=== PATIENT | female | born 1925 | race Caucasian/White ===

== ENCOUNTER 2016-09-01 21:02 | Inpatient (IN) | payer MEDICARE, OTHER ==
[~2016-09-01] VITALS: Ht 154.9 cm; Wt 54.8 kg
[~2016-09-01 21:02] MED LIST: ACETAMINOPHEN500 M1 PO; ARICEPT5 MG PO; ATIVAN0.5 MG PO; BUSPIRONE HCL7.5 MG PO; CELEXA10 MG PO; CELEXA20 MG PO; COZAAR100 MG PO; COZAAR50 MG PO; K-TAB10 MEQ PO; LASIX20 MG PO; NORVASC5 MG PO; RESTORIL7.5 MG PO; SYNTHROID25 MCG PO; ZOLOFT50 MG PO
[2016-09-01 22:15] LABS: APPEARANCE CLEAR (CLEAR); BILIRUBIN NEGATIVE (NEGATIVE); COLOR YELLOW (YELLOW); GLUCOSE NEGATIVE (NEGATIVE); KETONE NEGATIVE (NEGATIVE); LEUKOCYTE ESTERASE TRACE (NEGATIVE); NITRITE NEGATIVE (NEGATIVE); PROTEIN NEGATIVE (NEGATIVE); UROBILINOGEN NORMAL (NORMAL)
[2016-09-01 22:18] LABS: BACTERIA FEW /hpf (NONE SEEN); WHITE CELLS - URINE OCC /hpf (0-5)
[2016-09-01 22:26] LABS: UDS - AMPHET NEGATIVE QUAL (NEGATIVE); UDS - BARB NEGATIVE QUAL (NEGATIVE); UDS - BENZO NEGATIVE QUAL (NEGATIVE); UDS - COCAINE NEGATIVE QUAL (NEGATIVE); UDS - METH NEGATIVE QUAL (NEGATIVE); UDS - OPIATE NEGATIVE QUAL (NEGATIVE); UDS - PCP NEGATIVE QUAL (NEGATIVE); UDS - THC NEGATIVE QUAL (NEGATIVE)
[2016-09-01 22:40] LABS: BASOPHILS 0.2 % (0.0-2.0); EOSINOPHILS 0.6 % (0-7); HEMATOCRIT 39.9 % (36.0-48.0); IMMATURE GRANULOCYTES 0.3 % (0-5); LYMPHOCYTES 24.9 % (15-50); MCH 30.7 pg (26.0-34.0); MCHC 32.6 g/dL (31.0-37.0); MCV 94.1 fL (80.0-100.0); MEAN PLATELET VOLUME 10.2 fL (7.4-10.4); MONOCYTES 14.6 % (2-11); NEUTROPHILS 59.4 % (40-80); RBC 4.24 10x6/uL (4.00-5.40); RDW 13.2 % (11.5-14.5); WBC 6.5 10x3/uL (4.8-10.8)
[2016-09-01 22:44] LABS: PLATELET COUNT 166 10x3/uL (130-400)
[2016-09-01 22:52] LABS: ALBUMIN 3.7 g/dL (3.4-5.0); ANION GAP 13.4 mmol/L (8-16); BILIRUBIN - TOTAL 0.39 mg/dL (0.2-1.3); CALCIUM 8.7 mg/dL (8.5-10.1); CARBON DIOXIDE 27.2 mmol/L (21.0-32.0); CREATININE - SERUM 1.3 mg/dL (0.6-1.3); POTASSIUM - SERUM 3.6 mmol/L (3.5-5.1); PROTEIN - SERUM 6.9 g/dL (6.4-8.2)
[2016-09-02 00:15] VITALS: BP 143/60
--- NOTE | 2016-09-02 00:31 | NUR ---
Recieved from E.D. via wheelchair at 0015, alert and oriented to self and being in a hospital, admitted for Suicide statements at [facility], when asked why she make the statements she said 'I was pissed off' contracted for safety, physician called, family called, verbal consent guiven for admit to shelter, skintear on left hand, cellulitis on right elbow, bruises on both arms, DNR per family and [facility], will continue to monitor.
[2016-09-02] MEDS ORDERED: ZOLOFT50 MG PO (01:35)
[2016-09-02] MEDS ORDERED: ARICEPT10 MG PO (01:36)
[2016-09-02] MEDS ORDERED: TOPROL XL50 MG PO (01:36)
[2016-09-02] MEDS ORDERED: COLACE100 MG PO (01:37)
[2016-09-02] MEDS ORDERED: MELATONIN 10 M1 EACH PO (01:53)
[2016-09-02] MEDS ORDERED: SEROQUEL25 MG PO (01:54)
[2016-09-02] MEDS ORDERED: ATIVAN1 MG PO (01:56)
[2016-09-02] MEDS ORDERED: NYSTATIN1 PWD TOPICAL (01:58)
[2016-09-02 06:21] LABS: BASOPHILS 0.2 % (0.0-2.0); EOSINOPHILS 0.8 % (0-7); HEMATOCRIT 40.9 % (36.0-48.0); HEMOGLOBIN 13.2 g/dL (12-16); IMMATURE GRANULOCYTES 0.3 % (0-5); LYMPHOCYTES 35.1 % (15-50); MCH 30.3 pg (26.0-34.0); MCHC 32.3 g/dL (31.0-37.0); MEAN PLATELET VOLUME 10.4 fL (7.4-10.4); MONOCYTES 15.2 % (2-11); NEUTROPHILS 48.4 % (40-80); PLATELET COUNT 163 10x3/uL (130-400); RBC 4.35 10x6/uL (4.00-5.40); RDW 13.2 % (11.5-14.5)
[2016-09-02 06:47] LABS: HEMOGLOBIN A1C 6.3 % (4.8-6.0)
[2016-09-02 06:58] LABS: CHOL - HDL RATIO 1.6 ratio (2.3-4.1); LDL-HDL RATIO 0.6 ratio (1.5-3.5)
[2016-09-02 07:43] VITALS: BP 160/84
--- NOTE | 2016-09-02 08:56 | NUR ---
SPOKE TO PATIENTS DAUGHTER RECEIVED CODE WORD AND VERBAL CONSENT. PATIENTS DAUGHTER WOULD LIKE ASSSISTANCE TO GET HER MOM ON MEDICAID AND SHE IS UPSET THAT SHE IS HERE. SHE DOES NOT WANT HER MOTHER OVER SEDATED AND IS IN HOPES TO PLACE HER IN A MEMORY CARE UNIT.
--- NOTE | 2016-09-02 11:16 | NUR ---
B) PATIENT IS ANXIOUS, ADELIA SHIRLEY IS TALKING TO HER AND SHE IS BECOMING IRRITABLE AND MORE ANXIOUS, SHE REFUSES TO HAVE BS TAKEN AT THIS TIME. SHE IS ORIENTED TO HER NAME AND SHE DOES CONTINUE TO SAY SHE WISHES SHE WOULD , TRYING TO EXPLAIN THAT SHE IS HERE BECAUSE OF THAT AND WE NEED TO KEEP A CLOSE WATCH ON HER, DID TELL HER THAT HER DAUGHTER IS ON HER WAY. PATIENT CAN AMBULATE WITH A WALKER A SHORT DISTANCE, SHE IS UNSTEADY IN GAIT. I) PROVIDE PRESCRIBED MEDS. R) PATIENT IS COMPLIANT WITH MEDS AND DID GIVE HER AN ATIVAN 0.5 MG PO PATIENT DID ASK FOR SOMETHING TO HELP HER NERVES. SHE HAS BEEN TEARFUL AT TIMES THIS AM. P) CONTINUE PLAN OF CARE.
--- NOTE | 2016-09-02 11:30 | NUR ---
PATIENT IS IRRITABLE WITH STAFF, SHE KEEPS TELLING THEM SHE DOES NOT WANT TO HEAR WHAT THEY HAVE TO SAY. PATIENT MOVED TO ANOTHER AREA.
--- NOTE | 2016-09-02 11:40 | NUR ---
PATIENT IS CALMER, BUT SHE IS DEPRESSED.
--- NOTE | 2016-09-02 11:50 | NUR ---
PATIENT IS IN A DIFFERENT SPOT NEXT TO ANOTHER STAFF MEMBER AND SHE IS GETTING IRRITABLE WITH HIM ALSO, SHE SAYS SHE WANTS TO GO HOME AND HE HAS REDIRECTED HER LETTING HER KNOW SHE IS IN THE HOSPITAL AND SHE IS STAYING FOR A FEW DAYS, PATIENT IS NOT HAPPY WITH THAT ANSWER AND SHE IS GETTING AGITATED.
--- NOTE | 2016-09-02 12:00 | NUR ---
PATIENT TAKEN TO DINING ROOM SO SHE CAN EAT, SHE CALMED FOR AWHILE, BUT THEN SHE BECAME FOCUSED ON GOING HOME. STAFF TRYING TO REDIRECT, BUT PATIENT GETTING UPSET.
--- NOTE | 2016-09-02 12:30 | NUR ---
PATIENT SAT BY THIS NURSE AND TRYING TO EXPLAIN THAT SHE IS HERE AND THE REASON SHE IS HERE AND SHE IS ACCEPTING AT THIS TIME WHAT IS BEING SAID TO HER. EXPLAINED THAT SHE SAID SHE WANTED TO SHOOT HERSELF WITH A SHOT GUN AND STAFF HAVE TO TAKE IT SERIOUSLY. SHE SAID "I WOULD NEVER DO SUCH A THING" EXPLAINED THAT WE HAVE TO BELIEVE PEOPLE WHEN THEY SAY THAT SOME PEOPLE REALLY DO COMMIT SUICIDE. PATIENT HAS POOR SHORT TERM MEMORY, BUT AT THIS MOMENT SHE UNDERSTANDS.
--- NOTE | 2016-09-02 14:00 | NUR ---
PATIENT IS KICKING AND SCREAMING AND CURSING AT BOTH MHT'S TELLING THEM THEY ARE SORRY. THE STAFF ARE TRYING TO PREVENT HER FROM FALLING SHE IS UNSTEADY. PATIENT IS EXIT SEEKING AT THIS TIME. SHE WANTS TO GO HOME, PATIENT IS NOT REDIRECTING. SHE IS HITTING STAFF, SCREAMING AND YELLING LOUDLY.
--- NOTE | 2016-09-02 14:35 | NUR ---
PATIENT CONTINUES TO SCREAM LOUDLY. SHE IS ANXIOUS AND AGITATED. ATIVAN 1 MG IM AND HALDOL 2 MG IM GIVEN IN RIGHT HIP. SHE CONTINUES SCREAM.
--- NOTE | 2016-09-02 14:40 | NUR ---
REMOVED PATIENT TO THE HALLWAY TO ALLOW PATIENT TO SELF CALM, BECAUSE SHE IS MEDICATED HAD STAFF SIT WITH HER, BUT SHE IS CURSING AT THEM AND TRYING TO KICK AT THEM. SHE IS YELLING, ASKING FOR HELP, BUT WHEN THIS NURSE SAT DOWN TO TRY TO EXPLAIN WHAT WAS GOING ON SHE PUSHED ME AND SAID "GET OUT OF HERE" PATIENT IS CONFUSED AND UNABLE TO COMPREHEND REASON.
--- NOTE | 2016-09-02 15:25 | NUR ---
VISITORS ARE COMING AND PATIENT IS STILL SCREAMING AND YELLING, FIGHTING, SHE HAS NOT SETTLED FROM HER INJECTION. DHAVAL TOOK PATIENT DOWN TO NURSES STATION SO THAT SHE WOULD BE IN A QUIETER PLACE AND TO TRY TO SELF CALM AFTER HER MEDICATION.
[2016-09-02 16:17] VITALS: BP 160/84; Ht 154.9 cm; Wt 54.8 kg
--- NOTE | 2016-09-02 16:30 | NUR ---
PATIENT YELLING AND SCREAMING, WENT TO CHECK ON HER AND SHE GRABBED AT ME TO HELP HER, AGAIN TRIED TO EXPLAIN THAT SHE IS IN THE HOSPITAL AND THAT SHE IS NOT ABLE TO LEAVE JUST YET, BUT SHE WOULD NOT BE HERE VERY LONG. PATIENT CONTINUES TO SCREAM.
--- NOTE | 2016-09-02 17:10 | NUR ---
PATIENT BROUGHT TO DINING ROOM, SHE IS CALMER, SHE IS EATING DINNER, BUT SHE IS NOT LISTENING TO REDIRECTION, SHE DOES NOT WANT ANY ONE TELLING HER TO NOT GET UP BY HERSELF BECAUSE SHE IS UNSTEAY, HAS HAD FALLS PRIOR TO ADMIT.
[2016-09-02 19:30] VITALS: BP 140/80
--- NOTE | 2016-09-02 19:42 | NUR ---
OBTAINED URINE FOR UA AND CULTURE.
[2016-09-02 19:59] LABS: APPEARANCE CLEAR (CLEAR); COLOR STRAW (YELLOW)
[2016-09-02 20:00] LABS: BILIRUBIN NEGATIVE (NEGATIVE); GLUCOSE NEGATIVE (NEGATIVE); KETONE NEGATIVE (NEGATIVE); LEUKOCYTE ESTERASE NEGATIVE (NEGATIVE); NITRITE NEGATIVE (NEGATIVE); PROTEIN NEGATIVE (NEGATIVE); SPECIFIC GRAVITY 1.015 (1.005-1.020); UROBILINOGEN NORMAL (NORMAL)
--- NOTE | 2016-09-02 21:00 | NUR ---
RECEIVED IN DAYROOM SITTING IN RECLINER. KEEPS TRYING TO GET UP UNASSISTED. ALERT TO NAME ONLY, VERY CONFUSED. CALM AND COOPERATIVE WITH ASSESSMENT. ADMINISTER PRESCRIBED MEDICATIONS, REORIENT AND REDIRECT NEEDED. VSS. MEDICATION COMPLIANT. CONTINUE WITH CURRENT PLAN OF CARE AND MONITOR FOR SAFETY AND CHANGES.
--- NOTE | 2016-09-03 00:52 | NUR ---
SCREAMING AND KICKING STAFF. MEDICATED WITH ATIVAN 1 MG AND HALDOL 2 MG IM IN LEFT GLUTEAL.
[2016-09-03 05:13] LABS: RAPID PLASMA REAGIN Non Reactive (Non Reactive)
--- NOTE | 2016-09-03 08:14 | NUR ---
SPOKE WITH MATTHEW NEGRO, DAUGHTER AND GUARDIAN FOR PATIENT. UPDATE GIVEN ON PATIENT INVOLVING FALL LAST PM AT 1930 AND MEDICATION WHICH CURRENTLY THERE HAS NOT BEEN ANY CHANGES. REPORTED PATIENT RECEIVED A SKIN TEAR TO LEFT HAND AND HAD A BUMP ON HER HEAD AND NEURO CHECKS HAVE COME BACK NORMAL. ALSO INFORMED DAUGHTER PATIENT HAS HAD NO C/O AND PHYSICIAN WAS CONTACTED LAST NIGHT. VERBALIZED UNDERSTANDING.
[2016-09-03 08:30] VITALS: BP 149/73
--- NOTE | 2016-09-03 09:04 | NUR ---
B) PATIENT IS SLEEPING IN HALLWAY UPON ASSESSMENT. SHE IS EASILY AROUSED BY SAYING HER NAME AND TAKING V/S, COMPLIANT. SHE DID NOT REALIZE IT IS MORNING, BUT PATIENT HAS NOT SLEPT ALL NIGHT. SHE IS CONFUSED, ORIENTED TO NAME ONLY, NO SCREAMING NOTED AT THIS TIME. I) PROVIDE PRESCRIBED MEDS, REDIRECT AND REORIENT NEEDED. R) PATIENT IS CALM AT PRESENT. P) CONTINUE PLAN OF CARE.
[2016-09-03 10:19] LABS: VITAMIN D 25 HYDROXY 8.5 ng/mL (30.0-100.0)
[2016-09-03 12:19] LABS: FOLATE (FOLIC ACID) - SERUM 11.8 ng/mL (>3.0)
--- NOTE | 2016-09-03 18:13 | PN ---
PATIENT:SIMONE ALEMAN MEDICAL RECORD: [id number] LOCATION:[facility] ADMISSION DATE: 09/02/16 PROGRESS NOTE DATE OF SERVICE: 09/03/2016 SUBJECTIVE: No new complaint. OBJECTIVE: The patient was extremely agitated yesterday. She is quite attention seeking. The patient tends to yell out when she sees other people in her room. She did require both Haldol and Ativan yesterday for control of agitation. On exam, the patient this morning is somnolent. Affect very constricted. Speech minimal. Content of thought cannot be assessed. Sensorium appears unchanged. ASSESSMENT: No change in diagnosis. PLAN: 1. We will maintain current treatment plan including current medications. 2. Supportive therapy. TRANSINT:[id number] Voice Confirmation ID: [id number] DOCUMENT ID: [id number] MACY HAWLEY III, MD at 1813 CC: [id number] DICTATION DATE: 09/03/16 1136 SENIOR MARKETING ENGINEER: 09/03/16 1258 ADM IN [place] [facility] [id number] [place] [address]
[2016-09-03 19:30] VITALS: BP 163/79
--- NOTE | 2016-09-03 23:00 | NUR ---
RECEIVED IN DAYROOM SITTING IN W/C WITH STAFF. CALMER AND COOPERATIVE WITH ASSESSMENT AND CARE. SEE ASSESSMENT FLOW SHEET FOR FOR DETAILS. WILL CONTINUE CURRENT PLAN OF CARE.
[2016-09-04 10:37] VITALS: BP 125/61
--- NOTE | 2016-09-04 12:44 | NUR ---
(B)RECEIVED PATIENT SITTING IN A CHAIR AT THE NURSES STATION. ORIENTED TO SELF ONLY RELATING "AT A PLACE THAT TAKES CARE OF YOU." POOR INSIGHT INTO THE REASON FOR HOSPITALIZATION RELATING "MY DAUGHTER PUT ME HERE AND I DON'T KNOW WHY." WHEN INFORMED THE REASON SHE IS HERE PATIENT RELATED "I DON'T REMEMBER ANY OF THAT AND I WOULDN'T KNOW HOW TO USE A SHOTGUN ANYWAY." WE TALKED PATIENT RELATED "YOU KNOW I KIND OF REMEMBER SAYING SOMETHING LIKE THAT" RELATING "I WAS MAD BUT I WOULDN'T DO ANYTHING TO HURT MYSELF." SMILED AND SOCIALIZED WITH NURSE. AMBULATED WITH PHYSICAL THERAPY HOWEVER IS UNSTEADY AND REQUIRES MORE THERAPY PER PHYSICAL THERAPY. PATIENT IS LABILE AEB TALKING AND SMILING WITH STAFF BUT THEN ALL OF A SUDDEN PATIENT BECAME TEARFUL REALTING "WHY DON'T DO I HAVE TO SIT HERE THIS LONG?" PATIENT LAID HER HEAD ON THE TABLE AND WOULD NOT LOOK OR TALK WITH STAFF. (I)ADMINISTER MEDS AND MONITOR COMPLIANCE. ENCOURAGE PATIENT TO VERBALIZE FEELINGS TO STAFF. (R)MED COMPLIANT. PATIENT REMAINS LABILE AND AT TIMES WILL TALK WITH STAFF AND AT OTHERS WILL IGNORE STAFF. BLAMES DAUGHTER FOR BEING HERE REALTING SHE HAS TWO CHILDREN A SON AND A DAUGHTER AND HER DAUGHTER PUT HER HERE. (P)CONTINUE POC AND MAINTAIN FALL PRECAUTIONS.
[2016-09-04 20:00] VITALS: BP 131/72
--- NOTE | 2016-09-04 23:25 | NUR ---
B) Received patient in day room quiet, sitting with peers at change of shift. Denies being suicidal, or hopeless, maintains that she was angry and may have said something about killing herself but does not remember. States she is somewhere between [place] and [place] but cannot name this place, "I know I've been here before." Noted to have several small old scratches & scabs on both arms. Does not know where or how she got these. Dentures, upper and lower in, wears glasses but are at nursing station for daughter to diamond picker and have fixed due to being broken. Right elbow slightly reddened and swollen. Left hand skin tear healing. I) Administer medications as ordered, monitor for suicide ideation, redirect and reorient as needed, educate to fall precautions. R) Compliant with medications, denies SI/HI, unsteady gait, skin integrity improving as areas continue to heal. Oriented to person. P) Continue to monitor per plan of care.
--- NOTE | 2016-09-05 07:42 | NUR ---
B) Patient is awake, she is still sleepy, she knows her name, but not where she is located or the time. Patient can ambulate minimally with an unsteady gait. She is sitting in a w/c at this time. She slept well last night. restaurant shift leader did tell me she broke her glasses. I) Provide prescribed meds, redirect as needed and reorientate to unit milieu. R) Patient is cooperative at this time and has not shown aggression or tearfulness this am. P) Continue plan of care.
[2016-09-05 09:55] VITALS: BP 114/56
--- NOTE | 2016-09-05 17:36 | NUR ---
Patient had three visitors and her son did ask about her bruised arms, did explain that she had fallen. He verbalized understanding. Daughter came in and visited also. Patient recognized family, but she is confused.
[2016-09-05 19:30] VITALS: BP 136/70
--- NOTE | 2016-09-05 21:47 | NUR ---
RECEIVED IN DAYROOM. SETTING IN RECLINGER WITH STAFF AND PEERS AT HER SIDE. SOCIAL WITH PEERS AT TIMES. CALM AND COOPERATIVE WITH STAFF AND PEERS. ENCOURAGE TO EXPRESS NEEDS. PM MEDS GIVEN ORDERED. RESTING IN BED EYES CLOSED AT THIS TIME. CONTINUE PLAN OF CARE
--- NOTE | 2016-09-06 09:15 | NUR ---
B.) Alert and oriented to name only, has no insight to reason for hospitalization. I.) Administer medication and monitor compliance, redirect and reorient as need, monitor safety and encourage group participation. Provide one on one for patient to express feeling and educate on positive coping skills. R.) Compliant with medications, had one incident of aggresion this am, where tech tried putting patient shoes on but patient took them off and threw them and then her socks, able to redirect. No verbalized SI, contract for safety. Chair alarm in place and functioning properly. P.) Continue plan of care.
[2016-09-06 10:26] VITALS: BP 137/61
--- NOTE | 2016-09-06 14:42 | PSY ---
PATIENT NAME:SIMONE ALEMAN MEDICAL RECORD: [id number] : [birth year] LOCATION:[facility] ADMISSION DATE: 09/02/16 ACCOUNT: [id number] PSYCHIATRIC EVALUATION DATE OF EVALUATION: 09/02/16 Psychiatric Evaluation IDENTIFYING DATA: The patient is 89 years old and she is admitted to the hospital on a voluntary basis. CHIEF COMPLAINT: Suicidal thoughts. HISTORY OF PRESENT ILLNESS: The patient has a known history of dementia and she lives in an assisted living center. She was making suicidal statements to the staff there. She said that she would shoot herself with a gun. She was brought to the Emergency Room where she repeated those statements and also was aggressive and out of control and required Ativan to calm her. She endorses numerous depressive symptoms. She is clearly severely impaired cognitively. PAST MEDICAL HISTORY: Significant for hypertension and a cardiac arrhythmia. She has also had a hysterectomy and gallbladder surgery 35 years ago. ALLERGIES: CODEINE. CURRENT MEDICATIONS: Include Synthroid, Norvasc, Zoloft, Lasix, potassium, Aricept, melatonin, Seroquel and Ativan. PAST PSYCHIATRIC HISTORY: Significant for a previous hospitalization here for behavior problems associated with a dementing illness. FAMILY HISTORY: Unknown. SOCIAL HISTORY: The patient is . She has no history of drug or alcohol abuse. She has 2 adult children and she apparently functioned reasonably well from a social and occupational standpoint. MENTAL STATUS EXAMINATION: The patient is awake, alert and oriented to person, place, time and situation. Her mood is flat. Her affect is appropriate. Thought processes are disorganized with severe impairment of her memory, concentration and abstraction abilities. She denies any active intent to harm herself or others and denies overt psychotic symptoms. ASSETS: Supportive family members. LIABILITIES: Limited insight. DIAGNOSTIC IMPRESSION: AXIS I: Senile dementia of the Alzheimer's type with behavioral disturbances. Major depression, moderate severity without psychotic features. AXIS II: Deferred. AXIS III: Hypertension, chronic normal pressure hydrocephalus, hypothyroidism, osteoporosis, and constipation. AXIS IV: Moderate stressors. AXIS V: Global assessment of functioning is 35. PLAN: At this time, the patient is going to be admitted to the hospital for a comprehensive medical, psychological, and social evaluation. She will be treated with both memory enhancing and mood stabilizing medications. Her long-term prognosis is guarded. TRANSINT:[id number] Voice Confirmation ID: [id number] DOCUMENT ID: [id number] ISHAN POWELL MD at 1442 CC: [id number] DICTATION DATE: 09/02/16 1509 CIGAR HEAD PERFORATOR: 09/02/16 1526 ADM IN [facility] [address] [place] [address]
[2016-09-06 20:26] VITALS: BP 153/78
--- NOTE | 2016-09-06 21:41 | NUR ---
RECEIVED IN BEDROOM. LAYING IN BED WITH EYES CLOSED. RESPONDS TO VOICE. CALM AND COOPEATIVE WITH CARE AND ASSESSMENT. REINFORCE FALLS SAFETY. PM MEDS GIVEN ORDERED. RESTING EYES CLOSED AT THIS TIME. CONTINUE PLAN OF CARE
--- NOTE | 2016-09-07 10:11 | NUR ---
Nutrition Follow Up: Chart reviewed. Diet: Regular PO Intake: 66% (9 meal avg) +BM 09/05/16 Labs noted - Glucose WNL Meds: Lasix, Humulin, Synthroid Pt with good po intake at this time. Rec continue current diet. RD following.
[2016-09-07 10:14] VITALS: BP 104/65
--- NOTE | 2016-09-07 12:57 | NUR ---
(B)RECEIVED PATIENT SITTING IN A CHAIR AT THE NURSES STATION. ORIENTED TO SELF ONLY. POOR INSIGHT INTO THE REASON FOR HOSPITALIZATION RELATING "I FELL OR SOMETHING. I REALLY DON'T KNOW." EMOTIONAL TODAY. PATIENT WILL START CRYING FOR NO APPARENT REASON. LABILE AEB WILL INTERACT WITH OTHERS APPROPRIATELY HOWEVER WILL ALSO ARGUE AND TELL OTHERS TO SHUT UP AND/OR GET OUT. TRIES TO TELL PEERS WHAT TO DO. (I)ADMINISTER MEDS AND MONITOR COMPLIANCE. REDIRECT FOR INAPPROPRIATE OUTBURSTS. (R)MED COMPLIANT. REDIRECTS HOWEVER IS NOTED ARGUING WITH A FEMALE PEER AND HAD TO BE MOVED TO ANOTHER TABLE. DID APOLOGIZE TO STAFF LATER. REMAINS LABILE. (P)CONTINUE POC AND MAINTAIN FALL PRECAUTONS.
--- NOTE | 2016-09-07 13:54 | PN ---
PATIENT:SIMONE ALEMAN MEDICAL RECORD: [id number] LOCATION:[facility] ADMISSION DATE: 09/02/16 PROGRESS NOTE DATE OF SERVICE: 09/06/2016 SUBJECTIVE: The patient's case was discussed with staff. She has no new complaint. OBJECTIVE: The patient denies intent to harm herself or others. She is quite impaired cognitively, but is also having significant problems with some paranoid thoughts. ASSESSMENT: No change in diagnoses. PLAN: Current medicines have been reviewed and will be maintained. Her long-term prognosis is guarded. TRANSINT:[id number] Voice Confirmation ID: [id number] DOCUMENT ID: [id number] ISHAN POWELL MD at 1354 CC: [id number] DICTATION DATE: 09/06/16 1448 REGIONAL PROPERTY MANAGER: 09/06/16 191 ADM IN [facility] [address] [place] [address]
--- NOTE | 2016-09-07 15:52 | NUR ---
Patient daughter Iris Nuno here visiting, reviewed medication record with specific information regarding klonopin and Risperdal. States she does not feel like her mother will be able to go back to [facility] living, is considering possible shelter, very upset about this and is tearful, directed to clinical social work therapist Kaelyn for discussion.
[2016-09-07 19:40] VITALS: BP 126/65
--- NOTE | 2016-09-07 20:49 | NUR ---
RECEIVED IN DAYROOM. SETTING IN RECLINER. DEMANDING AT TIMES. COOPERATIVE WITH ASSESSMENT AND CARE. REFUSED PM MEDS AT INITIAL ATTEMPT. REDIERCT AND REORIENT ENCOURAGE TO TAKE PM MEDS AND PM MEDS GIVEN ORDERED. RESTING IN RECLINER AT THIS TIME. CONTINUE PLAN OF CARE.
[2016-09-08 08:03] VITALS: BP 123/68
--- NOTE | 2016-09-08 13:16 | NUR ---
PATIENT ATTEMPTING TO STAND UNASSISTED AND WHEN STAFF TRIES TO HELP HER TO A RECLINER OR BACK TO HER CHAIR PATIENT BECOMES RESTLESS AND AGGRESSIVE AEB BY KICKING, HITTING AND TRYING TO BITE STAFF. CURSING AND CALLING MHT A BASTARD. RELATING "GO AHEAD AND KILL ME. I WANT TO . GOD WILL GET YOU." BANDAIDS PLACED TO SKIN TEARSON LEFT HAND AND PATIENT PULLED THEM OFF RELATING "I WANT TO BLEED TO . GO AHEAD AND CUT MY ARMS OFF. CUT MY LEGS OFF I DON'T GIVE A DAMN. I'LL HELP YOU GET STARTED I'LL PULL MY SHOES OFF FOR YOU." RELATING TO UNSEEN OTHERS. PRN HALDOL ADMINISTERED PER ORDERS WITHOUT DIFFICULTY.
--- NOTE | 2016-09-08 17:02 | PN ---
PATIENT:SIMONE ALEMAN MEDICAL RECORD: [id number] LOCATION:[facility] ADMISSION DATE: 09/02/16 PROGRESS NOTE DATE OF SERVICE: 09/07/2016 SUBJECTIVE: The patient's case was discussed with staff. She has no new complaint. OBJECTIVE: The patient is in good behavioral control with limited insight about her condition. She tolerates her medicines well. ASSESSMENT: No change in diagnoses. PLAN: Current medicines and therapies have been reviewed. The patient was aggressive with another resident today. She will be monitored for clinical changes. Her long-term prognosis is guarded. TRANSINT:[id number] Voice Confirmation ID: [id number] DOCUMENT ID: [id number] ISHAN POWELL MD at 1702 CC: [id number] DICTATION DATE: 09/07/16 1404 SCREW DOWN: 09/07/16 1414 ADM IN [place] [id number] [place] [address]
[2016-09-08 19:53] VITALS: BP 154/77
--- NOTE | 2016-09-08 20:38 | NUR ---
(B)RECEIVED PATIENT SITTING IN A CHAIR AT THE NURSES STATION. ORIENTED TO SELF ONLY. ATTEMPTING TO INTERACT WITH ANOTHER PEER WHEN THE PEER STARTED TO HIT AT HER. PATIENT IS LABILE AEB WILL TALK AND INTERACT APPROPRIATELY HOWEVER WILL BECOME AGITATED AND WILL CURSE STAFF, ATTEMPT TO BITE, HIT AND KICK THEM AND ALSO TRIED THROWING HER SHOES AT ANOTHER PEER. ALSO MAKING COMMENTS THAT SHE SHOULD WANTED TO . ANGRY AND OBSSESSED WITH THE IDEA HER DAUGHTER "DID THIS TO ME" REFERRING TO HER HOSPITALIZATION. (I)ADMINISTER MEDS AND MONITOR COMPLIANCE. REDIRECT FOR INAPPROPRIATE BEHAVIOR AND DELUSIONAL THOUGHTS. (R)MED COMPLIANT. POOR REDIRECTION FOR BEHAVIOR AND DELUSIONS. PATIENT BECOMES MORE ANGRY AND ABILITY TO SEPARATE FANTASY FROM REALITY IS IMPAIRED. (P)CONTINUE POC AND MAINTAIN FALL PRECAUTIONS.
--- NOTE | 2016-09-09 04:58 | NUR ---
B) RECIEVED SITTING IN THE DAY ROOM, ALERT AND ORIENTED TO SELF, QUIET AND KEEPING TO HERSELF, SOCIAL WITH STAFF, I) ADMINISTERED PERSCRIBED MEDICATIONS, ORIENTED NEEDED, R) MEDICATION COMPLIANT, STATED SHE WAS NOT BETO WHY SHE WAS HERE, P) CONTINUE PLAN OF CARE, CONTINUE TO MONITOR.
[2016-09-09 08:08] VITALS: BP 157/73
--- NOTE | 2016-09-09 11:18 | NUR ---
B) Patient is awake and alert this am, she is oriented to self. She is particiapating in groups and she did ambulate with P.T. I) Provide prescribed meds and encourage to participate in groups and activities. R) Patient is compliant with meds and unit milieu. P) Continue plan of care.
--- NOTE | 2016-09-09 14:27 | PN ---
PATIENT:SIMONE ALEMAN MEDICAL RECORD: [id number] LOCATION:[facility]ddieYAHAIRAOctavio FoyMargie ADMISSION DATE: 09/02/16 PROGRESS NOTE DATE OF SERVICE: 09/08/2016 SUBJECTIVE: The patient's case was discussed with staff. She has no new complaint. OBJECTIVE: The patient is confused, but has not been aggressive. She is still not eating very well, but she is sleeping better. ASSESSMENT: No change in diagnoses. PLAN: Supportive and educational interventions were made. technician terminal and repeater prognosis is guarded. TRANSINT:[id number] Voice Confirmation ID: [id number] DOCUMENT ID: [id number] ISHAN POWELL MD at 1427 CC: [id number] DICTATION DATE: 09/08/16 171 SWATCH FOLDER: 09/08/16 1743 ADM IN [place] [id number] [place] [address]
[2016-09-09 19:30] VITALS: BP 153/71
--- NOTE | 2016-09-09 20:15 | NUR ---
RECIEVED IN DAYROOM. SETTING IN WHEELCHAIR WITH PEERS BY HER SIDE. STATES"I HAD A GOOD DAY". CALM AND COOPERATIVE WITH CARE AND ASSESSMENT. ENCOURAGE TO ASK FOR ASSIST. CONTINUES TO SET QUIETLY IN WHEELCHAIR. CONTINUE PLAN OF CARE
--- NOTE | 2016-09-10 08:00 | NUR ---
B) Patient is calm and pleasant today, she has not shown any aggression or hallucinations today. She is confused, she knows her name, but not place or time. Asked her where she is located and she says "Well, I'm at the place to eat" Explained that she is in the hopsital in [place], [place] and that yes, she will get to eat here. Explained to her the reason she is in the hospital and asked her if she recalled any of the behaviors mentioned. Patient said she did not. I) Provide prescribed meds and redirect to unit milieu. R) Patient does ambulate, but needs assist, watch carefully as she stands alone, alarm on, but she is quick. P) Continue plan of care.
[2016-09-10 08:08] VITALS: BP 125/57
--- NOTE | 2016-09-10 15:12 | NUR ---
LATE ENTRY FROM 09/09. PT'S DTR-INDU RENDON WAS PLEASED WITH SERVICES RECIEVED AND REFERRAL TO [facility]. PT'S SON AND DIL ALSO VISITED AND STATED THAT [facility] WAS NOT AN APPROPRIATE PLACEMENT FOR PT ANYMORE DUE TO SEVERE DECLINE IN COGNITION.
[2016-09-10 20:00] VITALS: BP 136/74
--- NOTE | 2016-09-11 01:30 | NUR ---
B) Recieved sitting a chair in the day room, alert and oriented to self and being in a hospital, calm and cooperative, confused as to why she was here, I) Administered perscribed medications, redirected and oriented as needed, R) Medication compliant, pleasant and social with staff, P) Continue plan of care, continue to monitor.
[2016-09-11 10:39] VITALS: BP 146/76
--- NOTE | 2016-09-11 12:24 | NUR ---
B) Patient is awake and alert, she is oriented to her self only. She does not know where she is and she does not know why she is here. She is confused, but has good longer term memory recall. She did ambulate with P.T., but did not do well. I) Provide prescribed meds. R) Patient is compliant with medications. P) Continue plan of care.
--- NOTE | 2016-09-11 13:38 | NUR ---
Patient is very irritable she wants to go to bed abd she wants to toilet, I personally just took her 10 minutes prior. She is angry with her children stating she will skin them for putting her here, tried to explain to her that it isn't their fault. She is getting angry. Haldol 2 mg IM given.
--- NOTE | 2016-09-11 14:15 | NUR ---
Patient is calmer and she is talking nicely with staff now, redirected to magazines and newspaper and patient is reading well.
--- NOTE | 2016-09-11 16:22 | NUR ---
Son and daughter in law here visiting and they are discussing that she will be moved to another place and that Iris is looking for a place for her to live. She is listening, not sure if she is comprehending what is being relayed to her, but she is being educated.
[2016-09-11 19:36] VITALS: BP 115/54
--- NOTE | 2016-09-12 00:19 | NUR ---
B) Recieved sitting in the day room, alert and oriented to self, confused and does not know why she is here, I) Administered perscribed medications crushed in vinilla pudding, redirected and oriented as needed, R) Medication compliant, calm and cooperative with staff, P) Continue plan of care, continue to monitor.
[2016-09-12 09:59] VITALS: BP 132/63
--- NOTE | 2016-09-12 12:48 | NUR ---
(B)RECEIVED PATIENT SITTING IN A CHAIR AT THE NURSES STATION. ORIENTED TO SELF AND AUGUST HOWEVER THOUGHT THE YEAR TO BE 1918. RELATES REASON FOR HOSPITALIZATION "TO GET HELP FOR WHAT I'VE GOT WRONG. IT STARTS WITH MY KNEES." POOR INSIGHT INTO THE REASON FOR HOSPITALIZATION RELATING "PLACE TO GET HELP." MORE COOPERATIVE TODAY AND NOT ACCUSING DAUGHTER OF PUTTING HER HERE. PLEASANT WHEN APPROACHED HOWEVER SITS AND WATCHES OTHERS BUT MAKES NEEDS KNOWN TO STAFF. (I)ADMINISTER MEDS AND MONITOR COMPLIANCE. REORIENT NEEDED. (R)MED COMPLIANT. POOR REORIENTATION DUE TO IMPAIRED ABILTIY TO RETAIN INFORMATION. COOPERATIVE AND PLEASANT. (P)CONTINUE POC AND MAINTIAN FALL PRECAUTIONS.
[2016-09-12 20:00] VITALS: BP 154/78
--- NOTE | 2016-09-13 00:14 | NUR ---
B) Recieved sitting in the day room, alert and oriented to self, impatient and demanding, wanting to get up unassisted, argumenative with staff, I) Administered perscribed medications, redirected several times, oriented to unit rules, R) Medication compliant, placed in hallway in rock chair to closely monitor, P) Continue plan of care, continue to monitor for falls.
[2016-09-13 10:25] VITALS: BP 128/70
--- NOTE | 2016-09-13 13:51 | PN ---
PATIENT:SIMONE ALEMAN MEDICAL RECORD: [id number] LOCATION:EddieYAHAIRAOctavio FoyMargie ADMISSION DATE: 09/02/16 PROGRESS NOTE DATE OF SERVICE: 09/10/2016 SUBJECTIVE: The patient's case was discussed with staff. She has no new complaint. OBJECTIVE: The patient is in good behavioral control with limited insight about her condition. She has some mood lability, but has not been aggressive. ASSESSMENT: No change in diagnoses. PLAN: The patient will be maintained on current medicines, which I have reviewed. I am going to increase the dose of Risperdal slightly. Her long-term prognosis is guarded. TRANSINT:[id number] Voice Confirmation ID: [id number] DOCUMENT ID: [id number] ISHAN POWELL MD at 1351 CC: [id number] DICTATION DATE: 09/10/16 1415 LOTTERY SALES CLERK: 09/10/16 1801 ADM IN [place] [id number] [place] [id number]
--- NOTE | 2016-09-13 13:52 | PN ---
PATIENT:SIMONE ALEMAN MEDICAL RECORD: [id number] LOCATION:EddieDouglasREYMUNDO Foy112 ADMISSION DATE: 09/02/16 PROGRESS NOTE DATE OF SERVICE: 09/09/2016 SUBJECTIVE: The patient's case was discussed with staff. She has no new complaint. OBJECTIVE: The patient is in good behavioral control with limited insight about her condition. She tolerates her medicines well. ASSESSMENT: No change in diagnoses. PLAN: Current medicines and therapies have been reviewed and will be maintained. Long-term prognosis is guarded. I anticipate the patient could be transitioned out of the hospital soon if this level of improvement is maintained. TRANSINT:[id number] Voice Confirmation ID: [id number] DOCUMENT ID: [id number] ISHAN POWELL MD at 1352 CC: [id number] DICTATION DATE: 09/09/16 1447 SOLE LEVELER MACHINE: 09/09/16 1504 ADM IN [place] [id number] [place] [address]
--- NOTE | 2016-09-13 17:50 | NUR ---
B.) Recieved patient this am, sitting in rock chair, yelling out and being argumentive with staff. Redirected patient for inappropriate behavior, refocused to reality versus nonreality. Cooperative with ADL and assessment. Alert to name only, has no insight to why she is here. I.) Administer medications and monitor compliance. Redirect and reorient as need. Monitor safety and signs or verbalized SI. R.) Compliant with medications, reorientation is brief, patient is focused on delusion that her daughter does not want her to walk, no SI, chair alarm on and functioning properly. P.) Continue plan of care.
[2016-09-13 19:39] VITALS: BP 136/68
--- NOTE | 2016-09-13 20:49 | NUR ---
RECEIVED IN DAYROOM. SETTING IN CHAIR WITH STAFF AND PEERS AT HER SIDE. SOCIAL AT TIMES.CALM AND COOPERATIVE WITH CARE AND ASSESSMENT. ENCOURAGE TO EXPRESS NEEDS. PM MEDS GIVEN ORDERED. RESTING IN BNED EYES OPEN AT THIS TIME. CONTINUE PLAN OF CARE
--- NOTE | 2016-09-13 22:10 | NUR ---
ATTEMPTS TO GET OUT OF BED WITHOUT ASSIST. REINFORCED FALLS SAFETY. MOVE TO HALLWAY IN RECLINER FOR ONE ON ONE CARE FOR SAFETY.
--- NOTE | 2016-09-14 10:04 | NUR ---
Nutrition Follow Up: Chart reviewed. Diet: Regular PO Intake: 60% (8 meal avg) Wt stable Labs noted - Glucose remains WNL Meds: Lasix Pt with fair po intake at this time. Will send Ensure BID. RD following.
[2016-09-14 14:08] VITALS: BP 162/77
--- NOTE | 2016-09-14 15:58 | NUR ---
B.) Alert and oriented to name and place today, no insight to why she is here, explained she was here because of SI, patient respond with "No, no way." and laughs. I.) Administer prescribed medications and monitor compliance, assess for any suicidal ideations. Monitor safety, encourage group participation and verbalization of feelings. R.) Compliant with medications. No suicidal ideations, contract for safety. Has been calm and cooperative, with no attempts to get up unassistted. P.) Continue plan of care.
[2016-09-14 20:35] VITALS: BP 133/66
--- NOTE | 2016-09-14 23:12 | NUR ---
RECEIVED IN DAYROOM. SETTING IN RECLINER WITH PEEERS AT HER SIDE. CALM AND COOPERATIVE WITH CARE AND ASSESSMENT. REINFORCE FALLS SAFETY. PM MEDS GIVEN ORDERED. RESTING EYES CLOSED IN BED AT THIS TIME. CONTINUE PLAN OF CARE
[2016-09-15 08:00] VITALS: BP 136/52
--- NOTE | 2016-09-15 12:09 | PN ---
PATIENT:SIMONE ALEMAN MEDICAL RECORD: [id number] LOCATION:DUNCAN Foy112 ADMISSION DATE: 09/02/16 PROGRESS NOTE DATE OF SERVICE: 09/14/2016 SUBJECTIVE: The patient's case was discussed with staff. She has no new complaint. OBJECTIVE: The patient is in good behavioral control with limited insight about her condition. She is much more appropriate and pleasant. She is still severely impaired cognitively. ASSESSMENT: No change in diagnoses. PLAN: If this level of improvement is maintained, I would anticipate she can be transitioned out of the hospital soon. TRANSINT:[id number] Voice Confirmation ID: [id number] DOCUMENT ID: [id number] ISHAN POWELL MD at 1209 CC: [id number] DICTATION DATE: 09/14/16 1447 PRICING DIRECTOR: 09/14/16 1500 ADM IN [place] [id number] [place] [id number]
--- NOTE | 2016-09-15 12:10 | PN ---
PATIENT:SIMONE ALEMAN MEDICAL RECORD: [id number] LOCATION:EddieYAHAIRAOctavio FoyMargie ADMISSION DATE: 09/02/16 PROGRESS NOTE DATE OF SERVICE: 09/13/2016 SUBJECTIVE: The patient's case was discussed with staff. She has no new complaint. OBJECTIVE: The patient is in good behavioral control, but she has been argumentative at other times and is very demanding overall. She is not eating adequately and she is not taking her medicines. ASSESSMENT: No change in diagnoses. PLAN: The patient denies that she is not taking her medicines, saying that that is not true, but nursing staff indicates that it is true. When asked if the patient has any problems or complaints about the medicines, she says not and that she is taking them, which again is not the case. It is difficult to adjust medications to address these symptoms when she is not taking them and this places me at a significant disadvantage in trying to handle her situation. TRANSINT:[id number] Voice Confirmation ID: [id number] DOCUMENT ID: [id number] ISHAN POWELL MD at 1210 CC: [id number] DICTATION DATE: 09/13/16 1419 AUTOCAD DETAILER: 09/13/16 1501 ADM IN [place] [id number] [place] [address]
--- NOTE | 2016-09-15 13:44 | NUR ---
P.) Alert and oriented to name and place today, pleasant smiling and cooperative with care. I.) Administer medications and monitor compliance, monitor for any suicidal ideations and monitor safety. Encourage group participation. R.) Compliant with medications, no suicidal ideations. Patient is smiling more today, socializing and walking with walker, motivated to move around today and wants to walk often with walker with assist per staff. P.) Continue plan of care.
[2016-09-15 20:22] VITALS: BP 136/67
--- NOTE | 2016-09-15 21:40 | NUR ---
RECEIVED AT NURSES DESK SITTING IN W/C. CALM AND COOPERATIVE WITH CARE. COMPLIANT WITH PM MEDS. ASSESSMENT COMPLETED PER FLOW SHEET. CONTINUE POC AND MONITOR FOR SAFETY.
[2016-09-16 08:10] VITALS: BP 141/65
--- NOTE | 2016-09-16 14:02 | PN ---
PATIENT:SIMONE ALEMAN MEDICAL RECORD: [id number] LOCATION:DUNCAN Foy112 ADMISSION DATE: 09/02/16 PROGRESS NOTE DATE OF SERVICE: 09/15/2016 SUBJECTIVE: The patient's case was discussed with staff. She has no new complaint. OBJECTIVE: The patient has had some recent delusional thoughts. She is being treated with antipsychotic medication that has significantly helped her thought disorganization and delusional thinking. DIAGNOSES: Psychosis, not otherwise specified. PLAN: The patient will be maintained on current medicines. Her long-term prognosis is guarded. I anticipate she will be transitioned out of the hospital soon if this level of improvement is maintained. TRANSINT:[id number] Voice Confirmation ID: [id number] DOCUMENT ID: [id number] ISHAN POWELL MD at 1402 CC: [id number] DICTATION DATE: 09/15/16 1544 SUPERVISOR FINISHING DEPARTMENT: 09/15/162013 ADM IN [facility] [address] [place] [address]
[2016-09-16 19:30] VITALS: BP 171/67
--- NOTE | 2016-09-17 00:34 | NUR ---
B) recieved sitting in the day room, alert and oriented to self, calm and keeping to herself, I) Administered perscribed medications, redirected as needed, R) Medication compliant, cooperative with staff, P) Continue plan of care, continue to monitor.
[2016-09-17 08:11] VITALS: BP 140/80
--- NOTE | 2016-09-17 12:28 | NUR ---
(B)RECEIVED PATIENT SITTING IN A CHAIR AT THE NURSES STATION. ORIENTED TO SELF ONLY AEB BEING IN A "PLACE THAT HELPS ME GET BETTER AND BETTER." PATIENT RELATES "WHY CAN'T I REMEMBER THAT" WHEN TOLD SHE IS AT [facility]. CALM AND COOPERATIVE AND EXPRESSES DISBELIEF WHEN TOLD THE REASON SHE WAS HOSPITALIZED. SMILES AND INTERACTS WITH STAFF AND PEERS. (I)ADMINISTER MEDS AND MONITOR COMPLIANCE. REORIENT NEEDED. (R)MED COMPLIANT. POOR REORIENTATION DUE TO IMPAIRED ABILITY TO RETAIN INFORMATION. (P)CONTINUE POC AND MAINTAIN FALL PRECAUTIONS.
--- NOTE | 2016-09-17 14:25 | NUR ---
LATE ENTRY FROM 09/16. PT'S DTR, INDU, VISITED THE UNIT. SW DISCUSSED DISCHARGE PLANNING AND PT'S PROGRESS FROM TREATMENT.
--- NOTE | 2016-09-17 15:23 | NUR ---
PT RESTLESS AND ANXIOUS. REQUESTED SOMETHING FOR HER NERVES. HALDOL 2MG PO ADMINISTERED PER ORDERS.
[2016-09-17 19:30] VITALS: BP 149/48
--- NOTE | 2016-09-17 20:49 | NUR ---
B) Patient is awake and alert and she is calm and pleasant tonight, she has not shown any aggression. She can ambulate with a walker. She is confused, oriented to self only. I) Provide prescribed meds. R) Patient is compliant with meds and unit milieu. P) Continue plan of care
[2016-09-18 09:46] VITALS: BP 142/66
--- NOTE | 2016-09-18 13:52 | NUR ---
PATIENT WAS BECOMING AGITATED AEB ARGUING WITH STAFF. REALTING SHE WAS GOING TO LEAVE HERE. SHE DOES NOT HAVE TO STAY HERE. HALDOL 2MG PO ADMINISTERED PER ORDERS.
--- NOTE | 2016-09-18 16:07 | NUR ---
(B)RECEIVED PATIENT SITTING IN A CHAIR AT THE NURSE'S STATION. ORIENTED TO SELF ONLY. RELATES "I WISH I COULD WALK" INSTRUCTED PATIENT SHE CAN WALK WITH THE WALKER. ORIENTED TO SELF ONLY RELATING SHE IS "IN THE PLACE WHERE THEY TAKE CARE OF YOU." RELATES REASON FOR HOSPITALIZATION "I FELL AND HURT MYSELF. HURT MY BRAIN." LABILE AEB WILL BE APPROPRIATE IN INTERACTION HOWEVER WILL THEN BECOME ARGUMENTATIVE AND NOT FOLLOW REDIRECTION. (I)ADMINISTER MEDS AND MONITOR COMPLIANCE. REORIENT NEEDED. (R)MED COMPLIANT. POOR REORIENTATION DUE TO IMPAIRED ABILITY TO RETAIN INFORMATION. (P)CONTINUE POC AND MAINTAIN FALL PRECAUTIONS.
--- NOTE | 2016-09-18 18:39 | PN ---
PATIENT:SIMONE ALEMAN MEDICAL RECORD: [id number] LOCATION:DUNCAN Venegas ADMISSION DATE: 09/02/16 PROGRESS NOTE DATE OF SERVICE: 09/17/2016 SUBJECTIVE: No new complaint. OBJECTIVE: The patient is doing well. She is tolerating the current dose of Risperdal 0.5 mg twice a day with excellent results. She is showing no side effects to the medication whatsoever. On exam, mood is euthymic, affect is pleasant, but somewhat constricted. Speech is low in volume and somewhat terse, but no other language disorder noted. Content of thought is negative for overt psychosis. Sensorium is unchanged. ASSESSMENT: No change in diagnosis. PLAN: 1. Maintain all current medications. 2. Continue supportive therapy. TRANSINT:[id number] Voice Confirmation ID: [id number] DOCUMENT ID: [id number] MACY HAWLEY III, MD at 1839 CC: [id number] DICTATION DATE: 09/17/16 1224 HUMAN RESOURCES RECRUITER: 09/17/162054 ADM IN [place] [id number] [place] [address]
[2016-09-18 20:00] VITALS: BP 156/69
--- NOTE | 2016-09-18 21:55 | NUR ---
B) Quiet, sitting off to edge of room alone, away from peers. No interaction noted with others. Dressings intact over left hand skin tears and right elbow abscess. Uses her walker when ambulating. No suicidal statements made. Refused to have a shower despite offer of assistance by staff. I) Administer medications as ordered, redirect and reorient PRN. R) Compliant with medications given crushed in applesauce. Oriented to person only, unable to state where she is, what caused her to be here and date. No acting out behavior. P) Continue to monitor per plan of care.
--- NOTE | 2016-09-19 05:35 | NUR ---
Agitated, wanted to get out of bed. Assisted up in wheelchair and rolled chair out to nursing station. Sitting for a few minutes but then started yelling out "Help me!" ... "Do something for me." Given Haldol 2mg po PRN for extreme anxiety.
[2016-09-19 07:41] VITALS: BP 148/73
--- NOTE | 2016-09-19 12:09 | NUR ---
ORIENTED TO PERSON ONLY. PLEASANT AND COOPERATIVE WITH CARE. NO AGGRESSION NOTED. MED COMPLIANT. PT DID GET A PRN HALDOL THIS MORNING BUT NO ACTING OUT BEHAVIOR SINCE. PT IS RESTLESS BUT EASILY REDIRECTED. FALL PRECAUTIONS MAINTAINED. WILL CONTINUE TO MONITOR AND CONTINUE WITH PLAN OF CARE.
[2016-09-19 19:30] VITALS: BP 170/69
--- NOTE | 2016-09-19 20:00 | NUR ---
RECEIVED IN DAYROOM. SETTING IN WHEELCHAIR WITH PEERS AT HER TIMES. ORIENTED TO SELF ONLY. CALM AND COOPERATIVE WITH CARE AND ASSIST. ATTEMPTS TO STAND WITHOUT ASSIST. REDIRECT AND REORIENT NEEDED FOR SAFETY. CONTINUES TO SET QUIETLY IN CHAIR. CONTINUE PLAN OF CARE
[2016-09-20 07:38] VITALS: BP 142/58
--- NOTE | 2016-09-20 13:16 | PN ---
PATIENT:SIMONE ALEMAN MEDICAL RECORD: [id number] LOCATION:DUNCAN Foy112 ADMISSION DATE: 09/02/16 PROGRESS NOTE DATE OF SERVICE: 09/16/2016 SUBJECTIVE: The patient's case was discussed with staff. She has no new complaint. OBJECTIVE: The patient's mood is a little anxious. She is not reporting anything delusional. She has not been aggressive nor has she had been threatening to harm herself. ASSESSMENT: No change in diagnoses. PLAN: The patient is currently much better than admission. In fact, I think she is close to being ready for transitioning out of the hospital to a intermediate. I am quite confused about the situation, however, as I am told by our psych social worker that the patient cannot be discharged to a intermediate on Risperdal and that this is the policy of the state. I have discharged many patients to the intermediate on Risperdal who did not have an axis I diagnosis of schizophrenia or bipolar disorder and clearly, the patient has dramatically improved on the Risperdal. I am aware of the risks of sudden cardiac in dementia patients along with the possibility of metabolic syndrome and as with almost all decisions and health care is a relative weighing of risks and benefits. After all the patient who is delusional and aggressive is also at risk of sudden cardiac , but it is hard to study that. I feel very comfortable that there is ample evidence-based medicine to indicate that what I am doing is appropriate. I have been aware of her long time, but the office of long-term care without the involvement of a physician has required the tapering of certain psychoactive medications in intermediate patients and frankly that has resulted in many rehospitalizations because of this policy that is well intentioned, but is harmful to patients. Hopefully, I can get some clarification on the policy and if no intermediate patient can be admitted on an antipsychotic medication unless the patient has a thinking disorder, Dashawn's chorea that is wildly inconsistent with the standard of care throughout the country. TRANSINT:[id number] Voice Confirmation ID: [id number] DOCUMENT ID: [id number] ISHAN POWELL MD at 1316 CC: [id number] DICTATION DATE: 09/16/16 1442 TECHNOLOGY ARCHITECT: 09/16/16 1711 ADM IN [facility] [address] [place] [address]
--- NOTE | 2016-09-20 18:37 | NUR ---
Oreinted to self only, has no insight to where she is and why, patient has been very agitated today, with no aggression but has been argumentive and unable to redirect. Has tried several time to get up unassisted despite redirections, cying out often tearful. Med compliant. No suicidal ideation. Frerquent redirection with no evidence of retaining information. Continue with plan of care.
[2016-09-20 19:58] VITALS: BP 178/72
--- NOTE | 2016-09-20 20:06 | NUR ---
RECEIVED IN [facility]. SETTING IN RECLINING CHAIR. KEEPING TO HERSELF. NOT SOCIALIZING. CALM AND COOPERATIVE WITH CARE AND ASSESSMENT. ENCOURAGE TO EXPRESS NEEDS. NO ATTENTION SEEKING BEHAVIORS. CONTINUES TO REST QUIETLY BY HERSELF. CONTINUE PLAN OF CARE
--- NOTE | 2016-09-21 09:43 | NUR ---
Nutrition Follow Up: Chart reviewed. Pt is eating 50% meal avg on a regular diet. +BM 09/19/16. Meds noted including Lasix. No new labs to assess. Pt is not meeting est nutritional needs at this time. Will send Ensure with meals. Rec continue current diet. RD following.
[2016-09-21 10:07] VITALS: BP 132/76
--- NOTE | 2016-09-21 15:49 | NUR ---
(B)RECEIVED PATIENT SITTING IN A CHAIR AT THE NURSES STATION. ORIENTED TO SELF ONLY. RELATES IS "AT A PLACE TRYING TO GET WELL." LESS SOCIAL WITH STAFF AND PEERS TODAY. BECOMES TEARFUL EASILY AND RELATES "SOMETHING IS WRONG WITH ME" OVER AND OVER. FREQUENT REQUEST TO GO TO BED. (I)ADMINISTER MEDS AND MONITOR COMPLIANCE. REORIENT NEEDED. (R)MED COMPLIANT. POOR REORIENTATION DUE TO IMPAIRED ABILITY TO COMPREHEND, PROCESS AND RETAIN INFORMATION. APPEARS HOPELESS/ HELPLESS. (P)CONTINUE POC AND MAINTAIN FALL PRECAUTIONS.
[2016-09-21 19:39] VITALS: BP 136/63
--- NOTE | 2016-09-21 20:49 | NUR ---
B) Patient is blunted in affect, she is calm and she is interacting with another patient. She is able to ambulate with a walker, she is oriented to self only. I) Provide prescribed meds. R) Patient is compliant with meds and unit milieu. P) Continue plan of care.
[2016-09-22 07:40] VITALS: BP 138/65
--- NOTE | 2016-09-22 14:34 | NUR ---
RECEIVED THIS AM SITTING IN CHAIR IN HALLWAY AT NURSES STATION.ORIENTED TO SELF ONLY.CALM AND COOPERATIVE TODAY.COMPLIANT WITH MEDS.MEDS CRUSHED AND TAKEN IN APPLESAUCE.WILL CONTINUE WITH PLAN OF CARE ,MONITOR FOR CHANGES AND SAFETY.
--- NOTE | 2016-09-22 17:36 | PN ---
PATIENT:SIMONE ALEMAN MEDICAL RECORD: [id number] LOCATION:DUNCAN Foy112 ADMISSION DATE: 09/02/16 PROGRESS NOTE DATE OF SERVICE: 09/20/2016 SUBJECTIVE: The patient's case was discussed with staff. She has no new complaint. OBJECTIVE: The patient is in good behavioral control with limited insight about her condition. She tolerates her medicines well. ASSESSMENT: The patient yesterday was fairly agitated. In fact, she required p.r.n. medication. I did discontinue her Risperdal on and unfortunately she has shown some behaviors that are problematic. I am going to start her on a low dose of Seroquel and hopefully that will relieve some of her disorganized thinking and behaviors. TRANSINT:[id number] Voice Confirmation ID: [id number] DOCUMENT ID: [id number] ISHAN POWELL MD at 1736 CC: [id number] DICTATION DATE: 09/20/16 1325 RING CONDUCTOR: 09/20/16 1545 ADM IN [place] [id number] [place] [address]
--- NOTE | 2016-09-22 20:46 | NUR ---
RECEIVED IN DAYROOM. SETTING QUIETLY IN WHEELCHAIR WITH PEERS AT HER SIDE. NOT SOCIALIZING AT THIS TIME. CALM AND COOPERATIVE WITH CARE AND ASSESMNET. ENCOPURAGE TO EXPRESS NEEDS. REINFORCE FALLS SAFETY. CONTINUE PLAN OF CARE
[2016-09-23 08:06] VITALS: BP 121/72
--- NOTE | 2016-09-23 13:20 | PN ---
PATIENT:SIMONE ALEMAN MEDICAL RECORD: [id number] LOCATION:DUNCAN Law112 ADMISSION DATE: 09/02/16 PROGRESS NOTE DATE OF SERVICE: 09/22/2016 SUBJECTIVE: The patient's case was discussed with staff. She has no new complaint. OBJECTIVE: The patient is calm and cooperative. She has not been aggressive today. ASSESSMENT: No change in diagnosis. PLAN: I anticipate the patient can be transitioned out of the hospital soon if this level of improvement is maintained. TRANSINT:[id number] Voice Confirmation ID: [id number] DOCUMENT ID: [id number] ISHAN POWELL MD at 1320 CC: [id number] DICTATION DATE: 09/22/16 1748 SATELLITE INSTALLATION TECHNICIAN: 09/22/16 1905 ADM IN [facility] [address] [place] [address]
[2016-09-23] MEDS ORDERED: KLONOPIN0.5 MG PO (13:35)
[2016-09-23] MEDS ORDERED: SEROQUEL25 MG PO (13:35)
--- NOTE | 2016-09-23 14:38 | NUR ---
PATIENT WAS TEARFUL, EXPRESSING THAT "I WANT TO GO HOME". PATIENT WAS REDIRECTED TO SOCIALIZE WITH PEERS IN GROUP. EASY TO REDIRECT, STANDS WITH ASSIST, AMBULATES WITH A WALKER WITH ASSIST. ORIENTED ONLY TO HERSELF, POOR SHORT TERM MEMORY RECALL. PROVIDED MEDICATIONS, MONITORED PATIENT AND REORIENTED NEEDED. CONTINUE PLAN OF CARE
[2016-09-23 19:30] VITALS: BP 165/76
--- NOTE | 2016-09-24 01:20 | NUR ---
B) Calm and cooperative. Impatient in dayroom waiting to go back to her room to get ready for bed. Socializing with select peers. No tearfulness or crying episodes this evening. I) Administer medications as ordered, redirect and reorient PRN. R) Compliant with medications, pleasant, Oriented to person. P) Continue to monitor per plan of care.
[2016-09-24 08:12] VITALS: BP 134/67
--- NOTE | 2016-09-24 09:26 | NUR ---
LATE ENTRY FROM 09/23/16 PT'S DTR ATTENDED SESSION. SW DISCUSSED DISCHARGE PLANNING FOR 09/24. SHE STATED SHE WILL BE PICKING UP HER MOM TO TAKE HER TO [facility]. MRS. RENDON WAS PLEASED WITH SERVICES.
--- NOTE | 2016-09-24 13:42 | NUR ---
B.) Alert and oriented to self and somewhat to place, stating " I'm in this place because I have some sort of disease. Calm and cooperative with assessment this am. I.) Administer medications and monitor compliance, monitor for any suicidal ideations or change in behavior. Encourage group participation. Monitor safety. R.) Compliant with medications, no suicidal ideations, participates in group. Pleasant and compliant with unit milieu. P. Continue with plan of care for discharge today.
--- NOTE | 2016-09-24 14:10 | NUR ---
FAXED OVER [facility]YSICIANS DISCHARGE ORDER AND OCT. TALKED WITH RIVER NURSE OVER AT [facility]. PATIENT DISCHARGED, STAFF ASSISTED HER TO HER DAUGHTER'S CAR ON ROUTE TO [facility]. PERSONAL BELONGINGS ACCOUNTED FOR AND GIVEN TO FAMILY. HARD COPY OF ORDERS GIVEN TO DAUGHTER TO HAND CARRY TO FACILITY. SHE IS NOW DISCHARGED FROM THE UNIT.
--- NOTE | 2016-09-25 12:54 | PN ---
PATIENT:SIMONE ALEMAN MEDICAL RECORD: [id number] LOCATION:DUNCAN Foy112 ADMISSION DATE: 09/02/16 PROGRESS NOTE DATE OF SERVICE: 09/24/2016 SUBJECTIVE: The patient's case was discussed with staff. She has no new complaint. OBJECTIVE: The patient is in good behavioral control with limited insight about her condition. She does tolerate her medicines well. ASSESSMENT: No change in diagnoses. PLAN: Current medicines and therapies have been reviewed and will be maintained. Long-term prognosis is guarded. TRANSINT:[id number] Voice Confirmation ID: [id number] DOCUMENT ID: [id number] ISHAN POWELL MD at 1254 CC: [id number] DICTATION DATE: 09/24/16 1222 SWEAT BAND SEPARATOR: 09/24/16 1720 DIS IN 09/24/16 [facility] [address] [place] [address]
--- NOTE | 2016-09-25 12:55 | PN ---
PATIENT:SIMONE ALEMAN MEDICAL RECORD: [id number] LOCATION:DUNCAN Foy112 ADMISSION DATE: 09/02/16 PROGRESS NOTE DATE OF SERVICE: 09/23/2016 SUBJECTIVE: The patient's case was discussed with staff. She has no new complaint. OBJECTIVE: The patient denies intent to harm herself or others. She tolerates her medicines well. She is calm and cooperative, but severely impaired intellectually. PLAN: I anticipate she can be transitioned out of the hospital soon if this level of improvement is maintained. TRANSINT:[id number] Voice Confirmation ID: [id number] DOCUMENT ID: [id number] ISHAN POWELL MD at 1255 CC: [id number] DICTATION DATE: 09/23/16 1328 SUPERVISOR MODEL MAKING: 09/23/16 1826 DIS IN 09/24/16 [place] [id number] [place] [address]
[2016-09-26] MEDS ORDERED: MELATONIN 10 M1 EACH PO (12:13)
[2016-09-26] MEDS ORDERED: SYSTANE 0.3-0.4%5 ML EACH EYE (12:16)
--- NOTE | 2016-09-30 14:53 | DS ---
PATIENT:SIMONE ALEMAN :[birth year] MEDICAL RECORD: [id number] DISCHARGE SUMMARY ADMISSION DATE: 09/02/16 DISCHARGE DATE: 09/24/16 Psychiatric Discharge Summary IDENTIFYING DATA: The patient is 89 years old and she is admitted to the hospital on a voluntary basis secondary to suicidal thoughts. The patient has a known history of dementia and lives in an assisted living center. She had been making suicidal statements to the staff there. She said she would shoot herself with a gun and was brought to the Emergency Room where she repeated those statements. She had also been aggressive with staff in the Emergency Room and did require p.r.n. Ativan to calm her. HOSPITAL COURSE: The patient was admitted to the hospital and was comprehensively evaluated from both the medical, psychological, and social standpoint. She was treated with both mood stabilizing and memory enhancing medications and did show significant improvement. She was subsequently transitioned to a higher level of care, namely a half-way. DISCHARGE DIAGNOSES: AXIS I: Senile dementia of the Alzheimer's type with behavioral disturbances. Major depression, moderate severity without psychotic features. AXIS II: None. AXIS III: Hypertension, normal pressure hydrocephalus, hypothyroidism, osteoporosis and constipation. AXIS IV: Moderate stressors. AXIS V: Global assessment of functioning is 40. PLAN: At the time of discharge, the patient was in good behavioral control and had no active thoughts of harming herself or others. She was tolerating her medications well. She will be followed on an outpatient basis by her primary care half-way physician. TRANSINT:[id number] Voice Confirmation ID: [id number] DOCUMENT ID: [id number] ISHAN POWELL MD at 1453 CC: [id number] DICTATION DATE: 09/29/16 1250 EMPLOYEE COMMUNICATIONS COORDINATOR: 09/30/16 0026 DIS IN 09/24/16 [facility] [address] [place] [address]
[2016-10-18] MEDS ORDERED: XANAX0.25 MG PO (14:34)
[2016-10-18] MEDS ORDERED: RISPERDAL0.5 MG PO (14:34)
[2016-10-18] MEDS ORDERED: MEGACE40 MG PO (14:34)
[2016-10-18] MEDS ORDERED: NYSTATIN15 GM TOPICAL (14:35)
[2016-10-18] MEDS ORDERED: ANUSOL-HC 2.5%30 GM RC (14:35)
== END 2016-09-24 14:14 | DRG 57 ==
LOC: D.ER 21:02 → D.PSYCH 09-02 00:18
PROVIDERS: Physician Assistant; ADMIT Psychiatry & Neurology Psychiatry
DX: G30.1 Alzheimer's disease with late onset (principal); F02.81 Dementia in other diseases classified elsewhere, unspecified severity, with behavioral disturbance; F32.1 Major depressive disorder, single episode, moderate; G91.2 (Idiopathic) normal pressure hydrocephalus; I10 Essential (primary) hypertension; E03.9 Hypothyroidism, unspecified; M81.0 Age-related osteoporosis without current pathological fracture; K59.00 Constipation, unspecified; Z74.09 Other reduced mobility; E11.9 Type 2 diabetes mellitus without complications